=== PATIENT | male | born 1930 | race Caucasian/White ===

== ENCOUNTER 2017-02-11 09:39 | Emergency (ER) | payer MEDICARE ==
[2017-02-11 09:56] VITALS: BP 138/72
--- NOTE | 2017-02-11 10:03 | UC ---
Respiratory Complaint HPI - HPI Summary HPI Summary: 86 y/o WM presents with a cough for 3 days. He tells me that 3 days ago he developed a non-productive cough, but sounds congested. This has progressively gotten worse. Yesterday he had one instance of diarrhea and didn't have an appetite last night or yet this morning. His says he only ate some crackers for breakfast this morning. He denies fever, chills, body aches, ST, SOB, chest pain, abdominal pain, n/v. He tells me that he does have some DANIELLE at baseline - this does not seem worse over the last 3 days. Pulse ox retaken and 98%. - History of Current Complaint Chief Complaint: UCRespiratory Stated Complaint: COLD,COUGH,DIARRHEA Time Seen by Provider: 02/11/17 10:02 Hx Obtained From: Patient, Family/Compliance Attorney Onset/Duration: Gradual Onset Timing: Constant Severity Initially: Mild Severity Currently: Moderate Character: Cough: Nonproductive - Allergies/Home Medications Allergies/Adverse Reactions: Allergies Allergy/AdvReac Type Severity Reaction Status Date / Time Procaine [From Novocain] Allergy INCREASE HR Verified 02/11/17 09:49 PMH/Surg Hx/FS Hx/Imm Hx - Additional Past Medical History Additional PMH: CKD stage 4 Endocrine History: Dyslipidemia Cardiovascular History: Cardiac Disease, Hypertension, Myocardial Infarction - Surgical History Surgical History: Yes Surgery Procedure, Year, and Place: Tonsillectomy age 8,stent placed 09/2016 - Family History Known Family History: Negative: Cardiac Disease, Hypertension, Diabetes - Social History Occupation: Retired Lives: With Family Alcohol Use: None Alcohol Amount: 6 inches red wine per day Substance Use Type: None Smoking Status (MU): Never Smoked Tobacco - Immunization History Most Recent Influenza Vaccination: [id number] season Most Recent Tetanus Shot: unk Most Recent Pneumonia Vaccination: Never had Review of Systems Constitutional: Negative Skin: Negative Eyes: Negative ENT: Negative Respiratory: Cough Cardiovascular: Negative Gastrointestinal: Diarrhea All Other Systems Reviewed And Are Negative: Yes Physical Exam Triage Information Reviewed: Yes Appearance: Well-Appearing, Well-Nourished Vital Signs: Initial Vital Signs Temp 98.7 F 02/11/17 09:54 Pulse 84 02/11/17 09:54 Resp 20 02/11/17 09:54 BP 138/72 02/11/17 09:54 Pulse Ox 8 02/11/17 09:54 Vital Signs Reviewed: Yes Eyes: Positive: Conjunctiva Clear. Negative: Conjunctiva Inflamed, Discharge ENT: Positive: Hearing grossly normal, Pharynx normal, TMs normal, Uvula midline. Negative: Pharyngeal erythema, Nasal congestion, Nasal drainage, TM bulging, TM dull, TM red, Tonsillar swelling, Tonsillar exudate, Sinus tenderness Neck: Positive: Supple, Nontender, No Lymphadenopathy Respiratory: Positive: Chest non-tender, Lungs clear, Normal breath sounds, No respiratory distress, No accessory muscle use Cardiovascular: Positive: Pulses Normal Abdomen Description: Positive: Nontender, No Organomegaly, Soft. Negative: CVA Tenderness (R), CVA Tenderness (L), Distended, Guarding Bowel Sounds: Positive: Present Neurological: Positive: Alert. Negative: Fatigued Psychological: Positive: Age Appropriate Behavior Skin: Negative: rashes UC Diagnostic Evaluation - Laboratory O2 Sat by Pulse Oximetry: 8 Respiratory Course/Dx - Course Course Of Treatment: POC flu - negative. CXR: IMPRESSION: NO EVIDENCE FOR ACTIVE CARDIOPULMONARY DISEASE. I suspect this is a viral bronchitis, but given his age/general debility, cardiac history, and CKD will cover him for a potential infectious process with doxycycline. - Differential Dx/Diagnosis Differential Diagnosis/HQI/PQRI: Bronchitis, CHF, Pulmonary Edema, Influenza, Lower Resp Infection Provider Diagnoses: Bronchitis Discharge - Discharge Plan Condition: Stable Disposition: HOME Prescriptions: DOXYcycline CAP(*) [DOXYcycline 100MG CAP(*)] 100 mg PO BID #14 cap Patient Education Materials: Acute Bronchitis (ED) Referrals: Efraín Faust MD [Primary Care Provider] - Additional Instructions: If you develop a fever, shortness of breath, chest pain, new or worsening symptoms - please call your PCP or go to the ED.
--- NOTE | 2017-02-11 10:42 | RAD ---
INDICATION: Cough. COMPARISON: Comparison is made with a prior study from July 17, 2015. TECHNIQUE: Dual-energy PA and lateral views of the chest were obtained. FINDINGS: The heart is within normal limits in size. Mediastinal and hilar contours appear within normal limits. The lungs are underinflated and clear. No pleural effusion is seen. IMPRESSION: NO EVIDENCE FOR ACTIVE CARDIOPULMONARY DISEASE.
== END 2017-02-11 10:54 | disposition home or self-care (01) ==
LOC: UCEAST 09:39
DX: J40 Bronchitis, not specified as acute or chronic (principal); R19.7 Diarrhea, unspecified; Z88.0 Allergy status to penicillin; I12.9 Hypertensive chronic kidney disease with stage 1 through stage 4 chronic kidney disease, or unspecified chronic kidney disease; N18.4 Chronic kidney disease, stage 4 (severe)
CPT/HCPCS: 71046; 87502; 99212; G0463

== ENCOUNTER 2017-11-04 11:30 | Day surgery (SDC) | payer MEDICARE ==
--- NOTE | 2017-10-21 06:37 | HP ---
HISTORY AND PHYSICAL: DATE OF ADMISSION/SURGERY: 11/04/17 He is scheduled for surgery at [facility] on 11/04/17. ATTENDING PHYSICIAN: Dr. Nguyễn.* (DICTATED BY TATO MOREL NP) CHIEF COMPLAINT: Stage 4 renal disease. HISTORY OF PRESENT ILLNESS: Lexa Seals is an 87-year-old male with a history of stage 4 renal disease which possibly will require hemodialysis in the future. At this time, he does not receive dialysis but felt it best to have a fistula in place when he may need it. An ultrasound was done preoperatively on the vessels of the left arm which showed the cephalic vein has a maximum diameter of 0.4 cm at the mid level humerus and a minimum diameter measurement of 0.2 cm more superiorly at the proximal humerus. At its deepest portion, the left cephalic vein is 0.5 cm. Beneath the level of the dermis at the distal humerus, the left brachial vein measures 0.[address] Nguyễn has discussed the nature and course of a [place] AV fistula and fistula with graft and has discussed the material risks and relevant alternatives to surgery. These were reviewed with the patient's and the patient at the preoperative appointment. The patient will sign on admission an informed consent for left arm radiocephalic fistula. PAST MEDICAL HISTORY: Stage 4 renal disease, hypertension, coronary artery disease, and high cholesterol. The patient had an IL in 2016 and had stent placement. He has a history of kidney stones. Dr. Faust is his primary practitioner. MEDICATIONS: 1. Aspirin 81 mg daily. 2. Atorvastatin calcium 80 mg 1 tablet daily. 3. Carvedilol 6.25 mg 1 tablet twice a day. 4. Nitroglycerin 0.4 mg p.r.n. ALLERGIES: None. FAMILY HISTORY: Father at age 63, colon cancer. Mother in her 60s, breast cancer. Two sisters and 1 is still living. SOCIAL HISTORY: He denied tobacco and alcohol use. REVIEW OF SYSTEMS: The patient denied problems with anesthesia. Denied bleeding tendencies, but does take a daily aspirin and was instructed to continue his aspirin daily. PHYSICAL EXAMINATION GENERAL: Lexa Seals is an 87-year-old male, well developed, well nourished, in no acute distress. VITAL SIGNS: Blood pressure 136/76, pulse is 64. Height is 5 feet 10 inches, weight 210. HEENT: Within normal limits. CHEST: Lungs clear. HEART: S1, S2. Regular rate and rhythm. No extra heart sounds, murmurs, clicks, or rubs. ABDOMEN: Soft, nontender. Positive bowel sounds. Positive tympany. No masses or organomegaly. IMPRESSION: Stage 4 renal disease. PLAN: Same-day surgery admission to Dr. Nguyễn's service for left arm radiocephalic fistula. TATO MOREL NP [id number]/CPS #: [id number] LYN
[~2017-11-04 11:30] MED LIST: Buffered Lidocaine 0.9% SYRIN* 5 ML/SYR SYRINGE INTRADERM ONE
[2017-11-04] MEDS ORDERED: ceFAZolin 2 GM in NS PREMIX(*) 2 GM/100 ML BAG IVPB ONE (12:06)
[2017-11-04] MEDS ORDERED: Heparin 2 UNITS/ML IVPREMIX* 1,000 ML IV ONE (12:48)
[2017-11-04] MEDS ORDERED: Heparin DIALYSIS ONLY(*) 1,000 UNITS/ML VIAL ONE (12:52)
[2017-11-04] MEDS ORDERED: Sodium Bicarbonate 8.4% SYR* 10 ML SYRINGE ONE (12:53)
[2017-11-04] MEDS ORDERED: Lidocain 1% EPI 1:100,000 * 30 ML MDV ONE (12:53)
[2017-11-04] MEDS ORDERED: Lidocaine 1% INJ* 10 MG/ML 30 ML SDV ONE (12:53)
[2017-11-04] MEDS ORDERED: Mepivacaine 2% MPF (20 MG/ML)* 20 ML MPF ONE (13:05)
[2017-11-04] MEDS ORDERED: Acetaminophen TAB* 325 MG PO PRN (15:29)
[2017-11-04] MEDS ORDERED: Naloxone* 0.4 MG/ML 1 ML VIAL IV PRN (15:29)
[2017-11-04] MEDS ORDERED: Ondansetron INJ* 2 MG/ML VIAL IV PRN (15:29)
[2017-11-04] MEDS ORDERED: fentaNYL* 50 MCG/ML 2 ML VIAL (100 MCG VIAL) IV PRN (15:29)
[2017-11-04 17:17] VITALS: BP 143/76
--- NOTE | 2017-11-05 01:52 | OP ---
DATE OF OPERATION: 11/04/17 - [facility] DATE OF : 30 SURGEON: Adolph Nguyễn MD. CEO NA: Alyse Banks NP. ANESTHESIA: Supraclavicular block plus sedation. PRE-OP DIAGNOSIS: End-stage renal disease. POST-OP DIAGNOSIS: End-stage renal disease. OPERATIVE PROCEDURE: Creation of left radiocephalic arteriovenous fistula. ESTIMATED BLOOD LOSS: None. DESCRIPTION OF PROCEDURE: The patient was taken to the procedure room. He underwent a supraclavicular block on the left side. He was placed in a supine position. He was prepped and draped in the usual sterile fashion. He received preoperative antibiotics. Lidocaine 1% was used to infiltrate on the radial aspect of the wrist. An incision was made in this area. Incision was carried down through the skin and subcutaneous tissue. Dissection was carried towards the cephalic vein, which was identified, encircled in vessel loops, and after this, the radial artery was identified, encircled in vessel loops as well and care was taken to preserve the radial nerve. After this was done, the patient received 2000 units of heparin. We then proceeded to double clip the cephalic vein distally. The vein was then spatulated and we then proceeded to cross- clamp the radial artery proximally and distally. An arteriotomy was performed, which was extended with Vazquez scissors and we then proceeded to perform an end- to-side anastomosis with the cephalic vein using 7-0 Prolene in a parachute technique. After this was completed, flow was established into the fistula. There was good flow into the fistula with pulsation and thrill in the proximal aspect of it. After this was done, the area was checked for hemostasis. No bleeding was noted. The incision was closed by layers. Subcutaneous tissue with 4-0 Vicryl suture and some subcuticular interrupted 4-0 Vicryl, Dermabond, and Steri-Strips. The patient tolerated the procedure well and he was taken in good condition to the recovery room. [id number]/CPS #: [id number] MTDD
== END 2017-11-04 17:00 | disposition home or self-care (01) ==
LOC: OR 11:30
PROVIDERS: ATTEND Surgery
DX: N18.6 End stage renal disease (principal); I10 Essential (primary) hypertension; I25.10 Atherosclerotic heart disease of native coronary artery without angina pectoris; E78.00 Pure hypercholesterolemia, unspecified; I25.2 Old myocardial infarction; Z95.5 Presence of coronary angioplasty implant and graft; Z87.442 Personal history of urinary calculi; I08.3 Combined rheumatic disorders of mitral, aortic and tricuspid valves
CPT/HCPCS: J0670; J0690; J1644

== ENCOUNTER 2017-12-09 10:24 | Day surgery (SDC) | payer MEDICARE ==
--- NOTE | 2017-12-06 06:41 | HP ---
HISTORY AND PHYSICAL: DATE OF ADMISSION/SURGERY: 12/09/17 He is scheduled for same-day surgery at [facility] on 12/09/17. DATE OF HISTORY AND PHYSICAL EXAM: 12/05/17 ATTENDING PHYSICIAN: Dr. Nguyễn.* (DICTATED BY TATO MOREL NP) CHIEF COMPLAINT: Left radiocephalic arteriovenous fistula that has not matured. HISTORY OF PRESENT ILLNESS: Lexa Seals is an 87-year-old male, who on underwent left radiocephalic arteriovenous [place] fistula. He is approximately 1 month postop and it was found that the fistula has not matured and it is now felt that he should return to the operating room for a [place]-Giovani graft for his dialysis. Dr. Nguyễn has discussed the nature and course of an arteriovenous graft and has discussed the material risks and relevant alternatives to surgery. These were reviewed with the patient at his preoperative appointment including but not limited to infection, bleeding, poor healing, occlusion. The patient and his have been given a chance to ask questions and these have been answered. The patient will sign permission for left arm arteriovenous graft. PAST MEDICAL HISTORY: Stage 4 renal disease, hypertension, coronary artery disease, high cholesterol, an OK in 2016 and stent placement. He undergoes dialysis. He has a history of kidney stones. MEDICATIONS: 1. Aspirin 81 mg daily. 2. Atorvastatin calcium 80 mg 1 tablet daily. 3. Carvedilol 6.25 mg 1 tablet twice daily. 4. Nitroglycerin 0.4 mg as needed. ALLERGIES: None. FAMILY HISTORY: Father at age 63, colon CA. Mother in her 60s, breast cancer. Two sisters and 1 is still living. SOCIAL HISTORY: He denied tobacco and alcohol use. REVIEW OF SYSTEMS: The patient does take a daily aspirin. He denied problems with anesthesia. He does continue to use his aspirin daily. PHYSICAL EXAMINATION GENERAL: Lexa Seals is an 87-year-old male, well developed, well nourished, comes into the office in a wheelchair. VITAL SIGNS: Height 70, weight 210. Blood pressure 122/74, pulse of 64, respirations 18. HEENT: Within normal limits. Teeth are in good repair. Pharynx clear. EOMs intact. Pupils equal, round, reactive to light and accommodation. NECK: Supple. Full range of motion. Thyroid nonpalpable. ABDOMEN: Soft, nontender. Positive bowel sounds. Positive tympany. No masses or organomegaly. EXTREMITIES: +2 symmetrical radial pulses. NEURO: Alert and oriented x3. The rest of the exam was grossly intact. IMPRESSION: Left radiocephalic arteriovenous fistula that has not matured. PLAN: Left arm arteriovenous graft. TATO MOREL JITTERBUG OPERATOR [id number]/CPS #: [id number] [facility]IST[facility]ATION HOSPITALMatty
[~2017-12-09 10:24] MED LIST changes: +NS 0.45% 1000 ML BAG* 1,000 ML IV SCH
[2017-12-09] MEDS ORDERED: Sodium Bicarbonate 8.4% SYR* 10 ML SYRINGE ONE (11:47)
[2017-12-09] MEDS ORDERED: Lidocaine 1% MPF wEPI 200,000* 30 ML SDV ONE (11:47)
[2017-12-09] MEDS ORDERED: Lidocaine 1% INJ* 10 MG/ML 30 ML SDV ONE (11:53)
[2017-12-09] MEDS ORDERED: Heparin 2 UNITS/ML IVPREMIX* 1,000 ML IV ONE (12:00)
[2017-12-09] MEDS ORDERED: Propofol* 10 MG/ML 20 ML BTL IV PUSH ONE ×2 (12:14→14:03)
[2017-12-09] MEDS ORDERED: Lidocaine 2% PF * 5 ML VIAL ONE (12:15)
[2017-12-09] MEDS ORDERED: Remifentanil* 2 MG VIAL ONE (12:15)
[2017-12-09] MEDS ORDERED: ceFAZolin 2 GM PREMIX in ORs 2 GM/50 ML BAG IVPB ONE (12:20)
[2017-12-09] MEDS ORDERED: Naloxone* 0.4 MG/ML 1 ML VIAL IV PRN (13:48)
[2017-12-09] MEDS ORDERED: Sodium Chloride 0.9%* 10 ML ONE (14:01)
[2017-12-09] MEDS ORDERED: Heparin VIAL(*) 5000 UNITS/ML VIAL (FIVE THOUSAND) ONE (14:02)
[2017-12-09] MEDS ORDERED: Bupivacaine 0.25% W/EPI* 10 ML SDV ONE ×2 (14:04→14:08)
[2017-12-09] MEDS ORDERED: Bupivacaine 0.25% SDV* 30 ML ONE (14:07)
[2017-12-09 16:19] VITALS: BP 138/75
--- NOTE | 2017-12-10 05:49 | OP ---
DATE OF OPERATION: 12/09/17 - [facility] DATE OF : 30 SURGEON: Adolph Nguyễn MD LABOR MEDIATOR: Alyse Banks NP ANESTHESIA: Local plus MAC. PRE-OP DIAGNOSIS: End-stage renal disease. POST-OP DIAGNOSIS: End-stage renal disease. OPERATIVE PROCEDURE: Left arm arteriovenous graft for hemodialysis, brachial artery to brachial vein. GRAFT USED: Propaten 6 mm. ESTIMATED BLOOD LOSS: Approximately 20 cc. DESCRIPTION OF PROCEDURE: The patient was taken to the procedure room. Prior to this, the patient had undergone a cephalic vein radiocephalic AV fistula that did not mature and eventually occluded. For this reason, the patient was taken for an AV graft that is being placed today. The patient was placed in supine position. He was prepped and draped in usual sterile fashion. He received preoperative antibiotics and under sedation preoperative ultrasound was performed. There appeared to be rather small vessels and veins in the antecubital fossa. The basilic vein appeared to be small caliber and the cephalic vein appeared to be diminutive on ultrasound. The area of the brachial vein was marked for access. Under sedation lidocaine 1% was used to infiltrate on the medial aspect of the left arm and an oblique incision was performed in this area. The incision was carried down to the skin and subcutaneous tissue. Bleeders were controlled by electrocoagulation. Dissection was carried down into the deep subcutaneous tissue and subfacial basilic vein was encountered, which appeared to be too small to receive the graft. The dissection was then carried around the neurovascular bundle in the arm protecting the nerve and exposing the brachial vein, which was then encircled in vessel loops proximally and distally. After this was completed we then proceeded to infiltrate the lidocaine 1% on the medial aspect of the distal arm just above the antecubital fossa. A transverse incision was performed in this area. The incision was carried down to the skin and subcutaneous tissue. The fascia was then opened and the brachial artery was then exposed proximally and distally, encircled in vessel loops and after this was completed we then proceeded to create a loop track between the two incisions and using a 6 mm tunneler, we then proceeded to advance the tunneler from the arterial side of the anastomosis to the venous and after this was done a 6 mm Propaten [place] was attached to the tip of the tunneler, sutured to it and then pulled through the other incision. The tunneler was then removed after disconnecting the graft. After this was done, the patient received 3000 units of Heparin. We proceeded to then bevel the venous anastomosis by bevelling the [place]-Giovani graft and after this was done the vein was cross clamped proximally and distally. A venotomy was performed which was extended with Pott scissors and the anastomosis was created and to sow using 6-0 Prolene. After this was done, the graft was irrigated with heparinized saline. We then proceeded to cross clamp the graft and we then proceeded to perform the arterial anastomosis. The graft was then transected straight to lay without tension over the brachial artery and after this was done the brachial artery was cross clamped proximally and distally and arteriotomy was performed with an 11-blade which was then extended with Pott scissors. We then proceeded to perform an end -to-side anastomosis using 7-0 Prolene and after this was completed the clamp on the venous side was released and then the arterial clamps were released and with good flow into the graft. This was confirmed by Doppler. The patient had palpable radial pulses and there was augmentation with when clamping the graft. There was no bleeding at the end of the procedure. We then proceeded to close the incisions, the subcutaneous tissue with 4-0 Vicryl and the skin with the subcuticular 5-0 Monocryl. The patient tolerated the procedure well and he was taken in good condition to the recovery room. [id number]/[facility] #: [id number] LYN
== END 2017-12-09 16:42 | disposition home or self-care (01) ==
LOC: OR 10:24
PROVIDERS: ATTEND Surgery
DX: N18.6 End stage renal disease (principal); Y83.2 Surgical operation with anastomosis, bypass or graft as the cause of abnormal reaction of the patient, or of later complication, without mention of misadventure at the time of the procedure; T82.590A Other mechanical complication of surgically created arteriovenous fistula, initial encounter; I25.10 Atherosclerotic heart disease of native coronary artery without angina pectoris; E78.00 Pure hypercholesterolemia, unspecified; I12.0 Hypertensive chronic kidney disease with stage 5 chronic kidney disease or end stage renal disease; I25.2 Old myocardial infarction; Z95.5 Presence of coronary angioplasty implant and graft; Z99.2 Dependence on renal dialysis
CPT/HCPCS: C1768; J0690; J1644; J2001; J2704

== ENCOUNTER 2018-02-18 16:15 | Emergency (ER) | payer MEDICARE ==
[2018-02-18 16:44] VITALS: BP 122/67
--- NOTE | 2018-02-18 16:58 | UC ---
FLU HPI - HPI Summary HPI Summary: patient has been coughing, has low grade temp has sleep 18-20 of the past 24 hours--patient has renal failure and is going to be starting dialysis - History of Current Complaint Chief Complaint: UCGeneralIllness Stated Complaint: TIRED,FEVER Time Seen by Provider: 02/18/18 16:39 Hx Obtained From: Patient Onset/Duration: Sudden Onset Pain Intensity: 0 Associated Signs & Symptoms: Positive: Fever, Myalgia - Allergy/Home Medications Allergies/Adverse Reactions: Allergies Allergy/AdvReac Type Severity Reaction Status Date / Time procaine [From Novocain] Allergy INCREASED Verified 02/18/18 17:31 HR PMH/Surg Hx/FS Hx/Imm Hx Previously Healthy: No Endocrine History: Dyslipidemia Cardiovascular History: Cardiac Disease, Myocardial Infarction GI/ History: Renal Disease - Surgical History Surgical History: Yes Surgery Procedure, Year, and Place: Tonsillectomy age 8,. stent placed 09/2015. 2018-LEFT ARM AV FISTULA - Family History Known Family History: Negative: Cardiac Disease, Hypertension, Diabetes - Social History Occupation: Retired Lives: With Family Alcohol Use: None Alcohol Amount: 6 inches red wine per day Substance Use Type: None Smoking Status (MU): Never Smoked Tobacco Have You Smoked in the Last Year: No - Immunization History Most Recent Influenza Vaccination: [id number] season Most Recent Tetanus Shot: unk Most Recent Pneumonia Vaccination: Never had Review of Systems All Other Systems Reviewed And Are Negative: Yes Constitutional: Positive: Fever, Fatigue Skin: Positive: Negative Eyes: Positive: Negative ENT: Positive: Negative Respiratory: Positive: Cough Cardiovascular: Positive: Negative Gastrointestinal: Positive: Negative Genitourinary: Positive: Negative Motor: Positive: Negative Neurovascular: Positive: Negative Musculoskeletal: Positive: Negative Neurological: Positive: Negative Psychological: Positive: Negative Is Patient Immunocompromised?: No Physical Exam Triage Information Reviewed: Yes Appearance: Ill-Appearing, Pain Distress, Obese Vital Signs: Initial Vital Signs Temp 100.2 F 02/18/18 16:37 Pulse 77 02/18/18 16:37 Resp 16 02/18/18 16:37 BP 122/67 02/18/18 16:37 Pulse Ox 95 02/18/18 16:37 Vital Signs Reviewed: Yes Eye Exam: Normal Eyes: Positive: Conjunctiva Clear ENT Exam: Normal ENT: Positive: Normal ENT inspection, Hearing grossly normal, Pharynx normal, TMs normal, Uvula midline. Negative: Nasal congestion, Trismus, Muffled voice, Hoarse voice, Dental tenderness, Sinus tenderness Dental Exam: Normal Neck exam: Normal Neck: Positive: Supple, Nontender Respiratory Exam: Normal Respiratory: Positive: Chest non-tender, Lungs clear, Normal breath sounds, No respiratory distress, No accessory muscle use Cardiovascular Exam: Normal Cardiovascular: Positive: RRR, No Murmur, Pulses Normal, Brisk Capillary Refill Musculoskeletal Exam: Normal Musculoskeletal: Positive: Strength Intact, ROM Intact, No Edema Neurological Exam: Normal Neurological: Positive: Alert, Muscle Tone Normal Psychological Exam: Normal Skin Exam: Normal Diagnostics - EKG Cardiac Rate: NL, Other Rate - prolonged ronald Cardiac Rhythm: Sinus: Normal ST Segment: Normal EKG Comparison: No Significant Change Flu Course/Dx - Course Course Of Treatment: to [facility] [place] by private car with partner driving - Differential Dx/Diagnosis Provider Diagnosis: Fatigue Discharge - Sign-Out/Discharge Documenting (check all that apply): Patient Departure All imaging exams completed and their final reports reviewed: No Studies - Discharge Plan Condition: Guarded Disposition: HOME-RECOMMEND TO ED Patient Education Materials: Fatigue (ED) Referrals: Efraín Faust MD [Primary Care Provider] - Additional Instructions: Please go directly to [facility] Emergency Department for addition assessment and care - Billing Disposition and Condition Condition: GUARDED Disposition: Home-Recommend to ED - Attestation Statements Provider Attestation: Per institutional requirements, I have reviewed the chart, however, I was not consulted specifically or made aware of this patient by the midlevel provider. I did not personally evaluate, interact with , or disposition this patient.
== END 2018-02-18 17:05 | disposition home health service (06) ==
LOC: UCEAST 16:15
DX: R53.83 Other fatigue (principal); N19 Unspecified kidney failure; I25.2 Old myocardial infarction; Z95.5 Presence of coronary angioplasty implant and graft; Z88.4 Allergy status to anesthetic agent
CPT/HCPCS: 93005; 99212; G0463